=== PATIENT | female | born 1955 | race African-American/Black ===

== ENCOUNTER → 2019-02-06 | Outpatient (CLI) | payer OTHER ==
--- NOTE | 2019-02-07 14:09 | Pulmonary Function Test ---
Pulmonary Function Test Date of Procedure:: 02/06/19 INDICATION:: Dyspnea Referring Provider: Dr. Trammell Tie Tape Machine Operator: Chanelle Damico FACULTY INSTRUCTOR - Report Spirometry: Spirometry: pre-FVC: 102% 3.40 L pre-FEV:1 2.62 L 98% pre-FEV1/FVC % 77 predicted 82 [id number]% 80% 2.24 L Lung Volume: Total lung capacity: 4.76 L 87% Vital capacity: 3.50 L 105% Inspiratory capacity: 3.29 L FRC N2: 1.47 L 52% ERV: 0.22 L RV: 1.26 L 60% RV/TLC %: 26 predicted 38 Diffusion Capactity: DLCO: 25.8 107% DLCO/VA: 4.37 113% Impression: No obstructive ventilatory defect. No hyperinflation or air trapping. No restrictive ventilatory defect. Normal diffusion capacity.
== END ==
LOC: RT 12:57
PROVIDERS: ATTEND Physician Assistant
DX: R06.00 Dyspnea, unspecified (principal); E03.9 Hypothyroidism, unspecified; E78.5 Hyperlipidemia, unspecified; R12 Heartburn; G47.00 Insomnia, unspecified
CPT/HCPCS: 94010; 94727; 94729